=== PATIENT | male | born 1945 | race Caucasian/White ===

== ENCOUNTER 2023-01-06 20:50 | Inpatient (IN) ==
[2023-01-06] MEDS ORDERED: SODIUM CHLORIDE 0.9% 1000ML 1,000 ML IV ONE ×2 (21:01→21:32)
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
[2023-01-06] MEDS ORDERED: PIPERACILLIN/TAZOBACTAM 4.5 GM/120 ML BAG IV ONE (21:32)
[2023-01-06 21:42] LABS: Hemoglobin 12.8 g/dl (14.0-18.0); Mean Corpuscular Hemoglobin 30.1 pg (25.0-34.0); Mean Corpuscular Hgb Conc 34.6 g/dL (32.0-36.0); Mean Corpuscular Volume 87.1 fL (80.0-100.0); Mean Platelet Volume 9.8 fL (9.4-12.4); Platelet Count 147 K/uL (130-400); RDW Coefficient of Variation 12.1 % (11.5-14.5); RDW Standard Deviation 38.7 fL (36.4-46.3); Red Blood Count 4.25 M/uL (4.70-6.10); White Blood Count 17.36 K/ul (4.8-10.8)
[2023-01-06 21:49] LABS: Alanine Aminotransferase 21 U/L (7-52); Albumin Level 3.9 gm/dl (3.4-5.0); Alkaline Phosphatase 51 U/L (34-104); Anion Gap 9 (3-11); Aspartate Aminotransferase 33 U/L (13-39); BUN Creatinine Ratio 18.9 (10-20); Bilirubin Direct 0.4 mg/dl (0-0.2); Bilirubin,Total 1.2 mg/dl (0.2-1.0); Blood Urea Nitrogen 25 mg/dl (6-23); Calcium 8.9 mg/dl (8.6-10.3); Carbon Dioxide 28 mmol/L (21-32); Chloride 102 mmol/L (98-107); Est GFR (African American) 60.7 ml/min; Est GFR (Non-African American) 52.4 ml/min; Glucose 121 mg/dl (70-99(Fasting)); Magnesium 1.3 mg/dl (1.7-2.4); Potassium 3.6 mmol/L (3.5-5.1); Sodium 139 mmol/L (136-145); Total Protein 6.7 gm/dl (6.0-8.3)
[2023-01-06] MEDS ORDERED: ACETAMINOPHEN 1,000 MG/100 ML VIAL IV STA (21:49)
[2023-01-06] MEDS ORDERED: MAGNESIUM SULFATE / D5W 1 GM/100 ML BAG IV STA (21:51)
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
[2023-01-06 22:04] LABS: Troponin I High Sensitivity 1382.5 pg/ml (0-20)
[2023-01-06 22:23] LABS: Basophils # (auto) 0.04 K/uL (0-0.2); Basophils % (auto) 0.2 %; Eosinophils % (auto) 0.6 %; Immature Granulocytes # (auto) 0.17 K/uL (0.01-0.20); Lymphocytes # (auto) 0.47 K/uL (1.2-3.4); Lymphocytes % (auto) 2.7 %; Monocytes # (auto) 0.47 K/uL (0.11-0.59); Monocytes % (auto) 2.7 %; Neutrophils # (auto) 16.11 K/uL (1.40-6.50); Neutrophils % (auto) 92.8 %
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
[2023-01-06] MEDS ORDERED: MIDAZOLAM HCL 1 MG/ML 2ML VIAL ONE (23:23)
[2023-01-06] MEDS ORDERED: KETAMINE 50 MG/5 ML SYRINGE ONE (23:24)
[2023-01-06] MEDS ORDERED: fentaNYL citrate PF 100 MCG/2 ML VIAL IV PRN (23:29)
[2023-01-06] MEDS ORDERED: ONDANSETRON INJ 2 MG/ML 2 ML VIAL IV PRN (23:29)
[2023-01-06] MEDS ORDERED: ATROPINE SULFATE 0.1 MG/ML 10ML SYR IV PRN (23:29)
[2023-01-06] MEDS ORDERED: ePHEDrine sulfate 50 MG/ML AMP IV PRN (23:29)
[2023-01-06 23:35] LABS: Appearance Urine Turbid (Clear); Bacteria Urine Automated 2+ (Negative); Bilirubin Urine Negative (Negative); Blood Urine 3+ (Negative); Color Urine Yellow; Epithelial Cell Urine Auto >30 /lpf (0-5); Glucose Urine UA Negative (Negative); Ketones Urine Negative (Negative); Leukocyte Esterase Urine 3+ (Negative); Nitrite Urine Positive (Negative); Protein Urine 2+ (Negative); RBC Urine Automated >30 /hpf (0-4); Specific Gravity Urine 1.019 (1.000-1.030); Urobilinogen Urine Negative (Negative); WBC Urine Automated >30 /hpf (0-5); pH Urine 5.5 (4.5-7.5)
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
[2023-01-07] MEDS ORDERED: LIDOCAINE 2% 2 ML VIAL/AMP(20MG/ML) INFIL ONE (00:09)
[2023-01-07] MEDS ORDERED: PROPOFOL IV EMULSION 10 MG/ML 20 ML VIAL IV ONE (00:09)
[2023-01-07] MEDS ORDERED: ONDANSETRON INJ 2 MG/ML 2 ML VIAL ONE (00:11)
--- NOTE | 2023-01-07 00:21 | Operative Report ---
PG Post Operative Report Pre & Post Diagnosis Operation Date: 01/06/23 23:00 Pre-Op Diagnosis: Sepsis Post-Op Diagnosis: Sepsis I identified the patient and participated in the time-out.: Yes Procedure Operation Date: 01/06/23 23:00 Actual Procedures Cystoscopy with bilateral retrograde pyelogram, urine aspiration, and stent placement Surgeon Isiah Leon, II, DO Plastic Design Applier None Estimated Blood Loss 1 Findings Consistent with Post-Op Diagnosis Stent placed in good position. Severely obstructed ureter on the left with stone impacted in the distal ureter. Wire was able to be placed and stent placed. Moderate obstruction of the right ureter. Stent placed without major issue. Urine aspirated from each renal pelvis and sent for culture Specimens Urine right kidney Urine left kidney Drains 6 Fr Multilength bilateral Anesthesia Type MAC Complications none Disposition Disposition: Recovery Room Indications Patient with obstruction with signs of sepsis and GASPER. Patient found to bilateral stones.. Risks and benefits discussed at length. Description of Procedure Patient was consented and brought back to the operating room. Patient was placed under anesthesia in the supine position and moved to the dorsal lithotomy position. Patient was prepped and draped in the regular sterile fashion. A time out was completed. A 30degree Cystoscope was placed into the bladder and the entire bladder was examined. The UO's were identified. This starting on the left and then moving to the right. The UO was cannulized with a catheter. The left side had a severe obstruction and required considerable manipulation. A wire was used to bypass the area of obstruction and then the catheter was able to be advanced. Urine was aspirated from the left side and sent for microanalysis. The wire was removed and a retrograde pyelogram was completed. A wire was then replaced placed. With the wire in place, a 6 Fr Double J stent was placed. It was confirmed with fluoroscopy. The right ureter was then cannulated. The catheter was advanced to the renal pelvis and urine was drained. There was obstruction from a stone however it was considerably less obstructed than the left side. Urine was aspirated and sent for culture. A retrograde pyelogram was completed and the wire was replaced. A 6 Sami multilength stent was then placed and confirmed with fluoroscopy. With the stents in place, the bladder was emptied. The scope was removed. The patient was cleaned, aroused from anesthesia, and transferred to the pacu in stable condition having tolerated the procedure well with no complications. I was present and participated in all aspects of the procedure. The patient will be monitored in the PACU until transferred. Patient will be monitored on the floor with supportive care and broad-spectrum antibiotics in order to cover sepsis and likely pyelonephritis and bacteremia. We will wait for cultures to de-escalate. Will likely need approximately 10 to 14 days of antibiotics prior to intervention on the stone I attest to the content of the Intraoperative Record and any orders documented therein. Any exceptions are noted below.
[2023-01-07] MEDS ORDERED: DIATRIZOATE MEGLUMINE 30% 100ML VIAL INSTIL ONE (00:22)
--- NOTE | 2023-01-07 00:28 | Anesthesiology Progress Note ---
Date of Service January 07, 2023 Anesthesia Post Procedure Vital Signs Vital Signs: Temp Pulse Pulse Resp BP BP Pulse Ox 01/06/23 23:21 85 01/06/23 23:21 96/61 L 01/06/23 23:20 83 01/06/23 23:10 81 24 98 01/06/23 23:00 84 19 98 01/06/23 23:00 90/38 L 01/06/23 22:50 80 24 99 01/06/23 22:40 93 H 97 01/06/23 22:30 85 22 98 01/06/23 22:30 115/65 01/06/23 22:20 86 20 98 01/06/23 22:10 90 17 01/06/23 22:00 110/67 01/06/23 23:25 01/06/23 23:22 36.7 C 85 20 96/61 L 96 01/06/23 22:00 84 21 99 01/06/23 21:50 86 21 98 01/06/23 21:40 103 H 20 01/06/23 21:30 93 H 23 98 01/06/23 21:30 98/59 L 01/06/23 21:20 92 H 21 96 01/06/23 21:10 91 H 21 97 01/06/23 21:02 92 H 20 96 01/06/23 21:00 24 01/06/23 21:00 95 01/06/23 21:00 38.1 C H 93 H 16 111/62 98 O2 Del Method O2 Flow Rate 01/06/23 23:21 01/06/23 23:21 01/06/23 23:20 01/06/23 23:10 01/06/23 23:00 01/06/23 23:00 01/06/23 22:50 01/06/23 22:40 01/06/23 22:30 01/06/23 22:30 01/06/23 22:20 01/06/23 22:10 01/06/23 22:00 01/06/23 23:25 Nasal Cannula 4 01/06/23 23:22 Nasal Cannula 4 01/06/23 22:00 01/06/23 21:50 01/06/23 21:40 01/06/23 21:30 01/06/23 21:30 01/06/23 21:20 01/06/23 21:10 01/06/23 21:02 01/06/23 21:00 01/06/23 21:00 Nasal Cannula 4 01/06/23 21:00 Nasal Cannula 4 Pain Intensity Back: Pain Intensity: 7 Transfer of Care Handoff Completed per policy Notes Mental Status: alert / awake / arousable Patient Amnestic to Procedure: Yes Nausea / Vomiting: adequately controlled Pain: adequately controlled Airway Patency, RR, SpO2: stable & adequate BP & HR: stable & adequate Hydration State: stable & adequate Anesthetic Complications: no major complications apparent
[2023-01-07] MEDS ORDERED: ONDANSETRON INJ 2 MG/ML 2 ML VIAL IV PRN (01:51)
[2023-01-07] MEDS ORDERED: NITROGLYCERIN SL 0.4 MG/TAB TAB SL PRN (01:51)
[2023-01-07] MEDS ORDERED: POLYETHYLENE (MIRALAX) 17 GM PACK PO PRN (01:51)
[2023-01-07] MEDS ORDERED: ACETAMINOPHEN 325 MG TAB PO PRN (01:51)
[2023-01-07] MEDS: LACTATED RINGER'S 1,000 ML IV SCH ×3 (02:09→16:11)
[2023-01-07] MEDS: MAGNESIUM SULFATE / D5W 1 GM/100 ML BAG IV SCH ×2 (02:09→03:45)
[2023-01-07] MEDS: PIPERACILLIN/TAZOBACTAM 4.5 GM in DEXTROSE 5% 100 ML IV SCH ×3 (02:30→17:25)
[2023-01-07] MEDS ORDERED: LACTATED RINGER'S 500 ML IV ONE (03:00)
[2023-01-07 03:12] LABS: Albumin Level 3.2 gm/dl (3.4-5.0); Bilirubin,Total 1.3 mg/dl (0.2-1.0); Calcium 7.9 mg/dl (8.6-10.3); Magnesium 1.7 mg/dl (1.7-2.4); Potassium 3.9 mmol/L (3.5-5.1)
[2023-01-07 03:18] LABS: Albumin Globulin Ratio 1.3 (0.9-2); BUN Creatinine Ratio 21.4 (10-20); Creatinine Clr Calc Pharmacy 58.8 ml/min; Est GFR (African American) 74.1 ml/min; Est GFR (Non-African American) 63.9 ml/min; Globulin 2.4 gm/dl (2.5-4.0); Total Protein 5.6 gm/dl (6.0-8.3)
[2023-01-07 06:32] LABS: Hematocrit (blood only) 35.3 % (42.0-52.0); Mean Corpuscular Hemoglobin 30.1 pg (25.0-34.0); Mean Corpuscular Volume 88.5 fL (80.0-100.0); Platelet Count 127 K/uL (130-400); RDW Coefficient of Variation 12.4 % (11.5-14.5); RDW Standard Deviation 40.1 fL (36.4-46.3); Red Blood Count 3.99 M/uL (4.70-6.10); White Blood Count 19.94 K/ul (4.8-10.8)
[2023-01-07 07:13] LABS: Basophils # (auto) 0.07 K/uL (0-0.2); Basophils % (auto) 0.4 %; Dohle Bodies 1+; Echinocytes 1+; Eosinophils # (auto) 0.04 K/uL (0-0.50); Eosinophils % (auto) 0.2 %; Immature Granulocytes # (auto) 0.18 K/uL (0.01-0.20); Immature Granulocytes % (auto) 0.9 %; Lymphocytes # (auto) 0.56 K/uL (1.2-3.4); Lymphocytes % (auto) 2.8 %; Monocytes # (auto) 0.75 K/uL (0.11-0.59); Monocytes % (auto) 3.8 %; Neutrophils # (auto) 18.34 K/uL (1.40-6.50); Neutrophils % (auto) 91.9 %; Toxic Vacuolation 1+
--- NOTE | 2023-01-07 07:30 | XRay Report ---
XR chest 1V portable HISTORY: Sepsis COMPARISON: Chest 01/03/2023. FINDINGS: The cardiac silhouette is mildly enlarged. There is mild central pulmonary vascular congest ion without overt edema. No new focal lung consolidations to suggest a pneumonia. No pleural effusion s. No pneumothorax. IMPRESSION: Cardiomegaly with mild central pulmonary vascular congestion without overt edema. ACT 112: Negative or not required by law. Electronically signed by: Ernie Medellin M.D. 01/07/2023 7:29 AM
--- NOTE | 2023-01-07 07:36 | Fluoroscopy Report ---
FL retrograde includes kub CLINICAL HISTORY: BILAT STENT PLACEMENT COMPARISON STUDY: None. FLUOROSCOPY TIME: 37 seconds FLUOROSCOPY IMAGES: 3 Ka,r: 9.4 mGy FINDINGS: Retrograde opacification of the bilateral renal collecting systems with bilateral ureteral stents. The ureteral stents appear in good position. IMPRESSION: Fluoroscopic assistance as above. ACT 112: Negative or not required by law. Electronically signed by: Ernie Medellin M.D. 01/07/2023 7:35 AM
[2023-01-07] MEDS: ENOXAPARIN INJ 40 MG/0.4 ML SYR SQ SCH (08:31)
[2023-01-07] MEDS: PANTOprazole 40 MG TAB PO SCH (08:31)
[2023-01-07 09:19] LABS: A calco-baum cmplx NotReported Not Detected (NotDetected); Bact fragilis Not Reported Not Detected (NotDetected); C auris Not Reported Not Detected (NotDetected); CTX-M Resistant Gene DETECTED (NotDetected); Calbicans Not Reported Not Detected (NotDetected); Candida glabrata Not Reported Not Detected (NotDetected); Candida krusei Not Reported Not Detected (NotDetected); Cneoformans/gatti Not Reported Not Detected (NotDetected); Cparapsilosis Not Reported Not Detected (NotDetected); Ctropicalis Not Reported Not Detected (NotDetected); E cloacae compx Not Reported Not Detected (NotDetected); Efaecalis Not Reported Not Detected (NotDetected); Efaecium Not Reported Not Detected (NotDetected); Enterobacterales DETECTED (NotDetected); Enterobacterales Not Reported DETECTED (NotDetected); Escherichia coli Not Reported DETECTED (NotDetected); H influenzae Not Reported Not Detected (NotDetected); IMP Resistant Gene Not Detected (NotDetected); K aerogenes Not Reported Not Detected (NotDetected); KPC Resistant Gene Not Detected (NotDetected); Koxytoca Not Reported Not Detected (NotDetected); Kpneumoniae grp Not Reported Not Detected (NotDetected); Lmonocyt Not Reported Not Detected (NotDetected); N meningitidis Not Reported Not Detected (NotDetected); NDM Resistant Gene Not Detected (NotDetected); OXA 48 Like Resistant Gene Not Detected (NotDetected); P aeruginosa Not Reported Not Detected (NotDetected); Proteus spp Not Reported Not Detected (NotDetected); Salmonella spp Not Reported Not Detected (NotDetected); Smarcescens Not Reported Not Detected (NotDetected); Staph lugdunensis Not Reported Not Detected (NotDetected); Staph spp. Not Reported Not Detected (NotDetected); Staphaureus Not Reported Not Detected (NotDetected); Staphepi Not Reported Not Detected (NotDetected); Stenmaltophilia Not Reported Not Detected (NotDetected); Strep agal(GrpB) Not Reported Not Detected (NotDetected); Strep pneum Not Reported Not Detected (NotDetected); Strep pyog (GrpA) Not Reported Not Detected (NotDetected); Strep spp Not Reported Not Detected (NotDetected); VIM Resistant Gene Not Detected (NotDetected); mcr-1 Colistin Resistant Gene Not Detected (NotDetected)
--- NOTE | 2023-01-07 11:19 | Electrocardiogram Report ---
Test Reason : Blood Pressure : / mmHG Vent. Rate : 093 BPM Atrial Rate : 093 BPM P-R Int : 158 ms QRS Dur : 098 ms QT Int : 322 ms P-R-T Axes : 057 -46 -01 degrees QTc Int : 400 ms Normal sinus rhythm with Pac's Left anterior fascicular block Nonspecific T wave abnormality Abnormal ECG When compared with ECG of 03-JAN-2023 12:51, Vent. rate has increased BY 35 BPM QRS axis Shifted left Pac's are present Inverted T waves have replaced nonspecific T wave abnormality in Inferior leads Confirmed by Jeancarlos Blandon ([id number]) on 01/07/2023 11:18:36 AM Referred By: Isiah Leon Confirmed By:Jeancarlos Blandon
--- NOTE | 2023-01-07 12:19 | Hospitalist Progress Note ---
Date of Service January 07, 2023 Assessment & Plan (1) Septicemia: Plan: Patient is a 77-year-old male here with bilateral ureterolithiasis, UTI, and septicemia. Growing gram-negative rods in blood cultures from outside hospital at [place]. With obvious abnormal urinalysis indicative of infection. Here with leukocytosis, fever, tachycardia, elevated lactate, and soft blood pressures. With acute kidney injury and NSTEMI Procalcitonin elevated at 124 Lactate elevated at 2.2 -Admit to PCU for telemetry monitoring -Continue IV Zosyn -Follow urine and blood cultures both from here and will need to contact outside hospital at [place] for follow-up on culture results -Continue IV fluids for volume resuscitation and repeat lactate now -Tylenol as needed for fevers and pain -Follow CBC, CMP, magnesium in the morning -Consulting urology and plans for urgent bilateral ureteral stent placement for source control Blood pressure is in the 80s systolic, required an additional bolus. If Blood pressure remains low, will transfer to ICU. Signed out to overnight residents. (2) Ureterolithiasis: Plan: With bilateral obstructing ureteral stones, acute kidney injury, and septicemia as above Plans for urology intervention with bilateral ureteral stents urgently Will need stone treatment after sepsis resolved Appreciate urology consultation (3) GASPER (acute kidney injury): Plan: Creatinine increased to 1.32 from 0.8 several days ago This is secondary to sepsis and bilateral obstructing ureteral stones Giving IV fluids, ureteral stents to be placed urgently Follow BMP in the morning (4) NSTEMI (non-ST elevated myocardial infarction): Plan: Troponin elevated at 1382 on admission, no chest pain, ECG without ischemic changes He has no history of any cardiac issues that he knows about. He is usually quite active and has never had angina. He walks on a treadmill 10 minutes each day and does other exercises. Likely myocardial demand ischemia in the setting of sepsis -Monitor on telemetry for arrhythmias -Trend serial troponin -Check echocardiogram -Consider cardiology consultation if troponin continues to trend upward -He is allergic to aspirin so we will hold off at this time -No need for heparin drip at this point as this is not acute coronary syndrome unless troponin trends sharply upward (5) Hypomagnesemia: Plan: Magnesium quite low at 1.3 -Replaced with 3 g of IV magnesium sulfate -Follow BMP and magnesium in the morning -Monitor on telemetry for arrhythmias (6) Osteoarthritis: Plan: Not taking anything at this time but has chronic hip, knee, and wrist joint pains from previous accident with multiple orthopedic surgeries (7) GERD (gastroesophageal reflux disease): Plan: Continue PPI (8) HLD (hyperlipidemia): Plan: Continue statin (9) Pulmonary nodule: Plan: CT scan of abdomen/pelvis performed as an outpatient and scanned into the chart does note a 5 mm right middle lobe nodule He is not a smoker Needs outpatient follow-up chest CT in 6 months-can be ordered by PCP Plan DVT prophylaxis-start Lovenox tomorrow morning after procedure, SCDs Disposition-admit to PCU Full code and his would be his spokesperson if he is unable to speak for himself. Admission and Anticipated Discharge Date Admission Date: January 06, 2023 Subjective Patient reports feeling better today. Not at baseline, but much less generalized malaise. Review of Systems Review of Systems: All systems reviewed & are unremarkable except as noted in HPI & below Physical Exam Constitutional: WD/WN, vitals as above Eyes: PERRL, conjunctivae normal, anicteric sclerae Neck: trachea midline, no thyromegaly Respiratory: normal respiratory effort, lungs clear to auscultation Cardiovascular: RRR, no murmur, no edema Chest (Breasts): Chest: normal inspection of chest Gastrointestinal (Abdomen): normal bowel sounds, soft, nontender, no hepatosplenomegaly Musculoskeletal: Extremities: extremities normal to inspection; no cyanosis and no clubbing Skin: no rashes, warm and dry Neurologic: moves all extremities and awake; no focal motor deficits Psychiatric: A+Ox3, euthymic affect Lymphatic: no lymphedema Results & Data Results & Data Vital Signs (Past 12 Hours) Vital Signs Temp Pulse Pulse Pulse Resp BP Pulse Ox 01/07/23 11:13 36.6 C 78 18 91/50 L 91 01/07/23 07:15 69 01/07/23 07:29 36.5 C 72 16 116/70 93 01/07/23 04:16 65 102/63 99 01/07/23 03:42 37.2 C 66 22 93/60 L 98 01/07/23 02:48 71 92/55 L 01/07/23 02:21 36.8 C 86 18 93/52 L 94 01/07/23 01:47 74 01/07/23 00:50 80 20 103/56 L 97 01/07/23 00:40 36.7 C 83 18 100/53 L 96 01/07/23 00:30 36.7 C 87 18 100/61 96 01/07/23 00:20 37.2 C 86 18 100/57 L 96 O2 Del Method O2 Flow Rate 01/07/23 11:13 Room Air 01/07/23 07:15 01/07/23 07:29 Room Air 01/07/23 04:16 Nasal Cannula 2 01/07/23 03:42 Nasal Cannula 2 01/07/23 02:48 Nasal Cannula 2 01/07/23 02:21 Room Air 01/07/23 01:47 01/07/23 00:50 Oxymask 8 01/07/23 00:40 Oxymask 8 01/07/23 00:30 Oxymask 8 01/07/23 00:20 Oxymask 8 PG Care Time/CCT Total # of Minutes Spent Total Time Spent with Patient: Total time spent is greater than 50% in coordination of care (as documented) at patient's floor/unit and/or counseling patient: Coding Level of Care Code 42991 SUB INP/OBS CARE 235MIN Diagnoses Septicemia A41.9 Ureterolithiasis N20.1 GASPER (acute kidney injury) N17.9 NSTEMI (non-ST elevated myocardial infarction) I21.4 Hypomagnesemia E83.42 Osteoarthritis M19.90 GERD (gastroesophageal reflux disease) K21.9 HLD (hyperlipidemia) E78.5 Pulmonary nodule R91.1
--- NOTE | 2023-01-07 14:02 | Electrocardiogram Report ---
Test Reason : Blood Pressure : / mmHG Vent. Rate : 069 BPM Atrial Rate : 069 BPM P-R Int : 166 ms QRS Dur : 100 ms QT Int : 378 ms P-R-T Axes : 061 -26 004 degrees QTc Int : 405 ms Normal sinus rhythm Low voltage QRS Nonspecific T wave abnormality When compared with ECG of 03-JAN-2023 12:51, Inverted T waves have replaced nonspecific T wave abnormality in Inferior leads Confirmed by Jeancarlos Blandon ([id number]) on 01/07/2023 2:02:02 PM Referred By: Isiah Leon Confirmed By:Jeancarlos Blandon
[2023-01-07] MEDS ORDERED: LACTATED RINGER'S 1,000 ML IV ONE (16:39)
--- NOTE | 2023-01-07 17:07 | Urology Progress Note ---
Date of Service January 07, 2023 Assessment & Plan (1) Septicemia: (2) Ureterolithiasis: (3) Osteoarthritis: (4) HLD (hyperlipidemia): (5) GERD (gastroesophageal reflux disease): (6) Bladder outlet obstruction: (7) Prostate CA: (8) Sepsis: (9) Acute bilateral obstructive uropathy: (10) Bilateral kidney stones: Plan POD1 s/p bilateral stent placement. Known partially obstructing stone with plan for intervention tomorrow, however developed severe pain and delirium and found to have new passing stone on contraslateral side causing severe hydronephrosis. Patient admitted for sepsis with septicemia and bilateral obstructing stones. Patient has known history of obstructing stone had plans to undergo intervention however developed sudden onset of severe pain at [facility] facility was evaluated and found to be in sepsis with the contralateral side also passing a stone causing obstruction. The left has severe hydro with significant obstructing stone. Obstructing stone on the right side with more mild hydro. Patient has history of prostate cancer. Is well-known to the urologic service. Has been on active surveillance. Concern for development of pyelonephritis developing into septicemia with signs of sepsis and systemic inflammatory response syndrome. Had initially presented with some confusion. Patient understood risk and benefits. Was able to answer all questions appropriately. Will likely need a proximately 10 to 14 days weeks of antibiotics depending on culture as well as severity of patient's infection. We will likely need to move forward with stone treatment at that time after adequate time for antibiotic management. At this point most concerning and pressing issue is the bilateral obstructions with significant development of sepsis. Patient is on broad-spectrum antibiotics. Was transitioned from Rocephin at the [facility] facility to Zosyn at our facility for increased gram- negative coverage including coverage of Pseudomonas. We will await the full culture results. Blood cultures positive. Maintain stent. Plan for continued supportive care. Improved overnight though some occasional borderline hypotension episodes. No significant tachycardia. Trending labs over time. If develops fevers may need catheter for full dr faye. Continue with broad spectrum abx. Will de-esculate when appropriate with plans for full abx course and clearing of infection over time with intervention on stones once improved. Monitor and plan outpatient followup to set up intervention and reassess. Admission and Anticipated Discharge Date Admission Date: January 06, 2023 Subjective Postop from stent placement for obstruction issues. Patient has been tolerating well. Has noticed some frequency and urgency. Has not had severe pain in the back and flank. Does have occasional burning and irritation. No severe episodes or major changes. No new nausea or vomiting. Had tolerated anesthesia without major problems Review of Systems Review of Systems: All systems reviewed & are unremarkable except as noted in HPI & below Physical Exam Physical Exam: General: Alert in no acute distress. HEENT: Normocephalic Atraumatic. Inspection normal. Cranial Nerves 2-12 Grossly intact. Normal inspection of face. Normal inspection of neck. Psychologic: Normal affect. Respiratory: Nonlabored. No use of accessory muscles. No tachypnea or dyspnea. Cardiovascular: No tachycardia Skin: [place] and Dry. No rashes or visible lesions. Extremities/Lymphatics: No edema Abdomen: Soft Non-distended. No rebound or guarding. Results & Data Vital Signs (Past 12 Hours) Vital Signs Temp Pulse Pulse Resp BP Pulse Ox O2 Del Method 01/07/23 16:52 36.6 C 01/07/23 16:16 96 Nasal Cannula 01/07/23 16:15 38.2 C H 78 18 86/46 L 83 L Room Air 01/07/23 15:26 81 01/07/23 11:13 36.6 C 78 18 91/50 L 91 Room Air 01/07/23 07:15 69 01/07/23 07:29 36.5 C 72 16 116/70 93 Room Air O2 Flow Rate 01/07/23 16:52 01/07/23 16:16 3 01/07/23 16:15 01/07/23 15:26 01/07/23 11:13 01/07/23 07:15 01/07/23 07:29 PG Care Time/CCT Total # of Minutes Spent Total Time Spent with Patient: Total time spent is greater than 50% in coordination of care (as documented) at patient's floor/unit and/or counseling patient: Coding Level of Care Code 89523 SUB INP/OBS CARE 3/50MIN Diagnoses Septicemia A41.9 Ureterolithiasis N20.1 Osteoarthritis M19.90 HLD (hyperlipidemia) E78.5 GERD (gastroesophageal reflux disease) K21.9 Bladder outlet obstruction N32.0 Prostate CA C61 Sepsis A41.9 Acute bilateral obstructive uropathy N13.9 Bilateral kidney stones N20.0
[2023-01-07] MEDS: ROSUVASTATIN CALCIUM 10 MG TAB PO SCH (19:50)
[2023-01-08] MEDS: PIPERACILLIN/TAZOBACTAM 4.5 GM in DEXTROSE 5% 100 ML IV SCH ×3 (02:28→17:56)
[2023-01-08] MEDS: LACTATED RINGER'S 1,000 ML IV SCH ×3 (02:30→17:57)
[2023-01-08] MEDS: ENOXAPARIN INJ 40 MG/0.4 ML SYR SQ SCH (08:06)
[2023-01-08] MEDS: PANTOprazole 40 MG TAB PO SCH (08:06)
[2023-01-08 08:45] LABS: Hematocrit (blood only) 32.9 % (42.0-52.0); Hemoglobin 11.1 g/dl (14.0-18.0); Mean Corpuscular Hemoglobin 29.5 pg (25.0-34.0); Mean Corpuscular Hgb Conc 33.7 g/dL (32.0-36.0); Mean Corpuscular Volume 87.5 fL (80.0-100.0); Mean Platelet Volume 10.4 fL (9.4-12.4); Platelet Count 144 K/uL (130-400); RDW Coefficient of Variation 12.4 % (11.5-14.5); RDW Standard Deviation 39.8 fL (36.4-46.3); Red Blood Count 3.76 M/uL (4.70-6.10); White Blood Count 17.29 K/ul (4.8-10.8)
[2023-01-08 08:56] LABS: BUN Creatinine Ratio 21.8 (10-20); C Reactive Protein 26.44 mg/dl (0-0.5); Calcium 8.4 mg/dl (8.6-10.3); Creatinine Clr Calc Pharmacy 46.4 ml/min; Est GFR (African American) 55.6 ml/min; Potassium 4.1 mmol/L (3.5-5.1)
--- NOTE | 2023-01-08 12:47 | Ultrasound Report ---
ULTRASOUND KIDNEYS AND BLADDER CLINICAL HISTORY: Elevated creatinine. Urosepsis. COMPARISON STUDY: No priors. TECHNIQUE: Real-time, grayscale, and color flow sonography of the kidneys and bladder is performed. I mages are reviewed in the transverse and longitudinal planes. FINDINGS: Kidneys: The kidneys are normal in size and echotexture. Bilateral ureteral stents are in place. The right kidney measures 12.5 cm in length and the left kidney measures 13.7 cm in length. There is mil d left-sided hydronephrosis. No hydronephrosis is seen on the right. No shadowing renal calculi are i dentified. A subcentimeter cyst is noted on the left. There is no sonographic evidence of contour def orming renal mass lesion. No perinephric fluid is identified. Bladder: The prostate gland is enlarged and heterogeneous noticing median lobe hypertrophy. The bladd er is decompressed, and the wall appears thickened/ventilated indicating chronic outlet obstruction. The bladder contains the distal ends of bilateral ureteral stents. IMPRESSION: 1. Bilateral ureteral stents are in place. 2. Mild left-sided hydronephrosis. 3. Prostatomegaly with evidence of chronic bladder outlet obstruction. ACT 112: Negative or not required by law. Electronically signed by: Stuart Awad M.D. 01/08/2023 12:46 PM
[2023-01-08] MEDS: ROSUVASTATIN CALCIUM 10 MG TAB PO SCH (20:50)
--- NOTE | 2023-01-08 23:08 | Hospitalist Progress Note ---
Date of Service January 08, 2023 Assessment & Plan (1) Septicemia: Plan: Patient is a 77-year-old male here with bilateral ureterolithiasis, UTI, and septicemia. Growing gram-negative rods in blood cultures from outside hospital at [place]. With obvious abnormal urinalysis indicative of infection. Here with leukocytosis, fever, tachycardia, elevated lactate, and soft blood pressures. With acute kidney injury and NSTEMI Procalcitonin elevated at 124 Lactate elevated at 2.2 -Admit to PCU for telemetry monitoring -Continue IV Zosyn -Follow urine and blood cultures both from here and will need to contact outside hospital at [place] for follow-up on culture results -Continue IV fluids for volume resuscitation and repeat lactate now -Tylenol as needed for fevers and pain -Follow CBC, CMP, magnesium in the morning -Consulting urology and plans for urgent bilateral ureteral stent placement for source control Blood pressure has improved. WBC showing improvement, and lcinically patient feels better on 01/08 Awaiting cultures, Patient has a mutation with CTX- resistance which makes maksim low risk that zosyn could lead to failure of treatment. However, given significatn clinical imprvement, zosyn appears to be working. WIll await sensitivites before switching to another agent, though will strongly consider a carbapenem.. (2) Ureterolithiasis: Plan: With bilateral obstructing ureteral stones, acute kidney injury, and septicemia as above Plans for urology intervention with bilateral ureteral stents urgently Will need stone treatment after sepsis resolved Appreciate urology consultation (3) GASPER (acute kidney injury): Plan: Creatinine increased to 1.32 from 0.8 several days ago This is secondary to sepsis and bilateral obstructing ureteral stones Giving IV fluids, ureteral stents to be placed urgently Follow BMP in the morning (4) NSTEMI (non-ST elevated myocardial infarction): Plan: Troponin elevated at 1382 on admission, no chest pain, ECG without ischemic changes He has no history of any cardiac issues that he knows about. He is usually tre[place] te active and has never had angina. He walks on a treadmill 10 minutes each day and does other exercises. Likely myocardial demand ischemia in the setting of sepsis -Monitor on telemetry for arrhythmias -Trend serial troponin -Check echocardiogram -Consider cardiology consultation if troponin continues to trend upward -He is allergic to aspirin so we will hold off at this time -No need for heparin drip at this point as this is not acute coronary syndrome unless troponin trends sharply upward (5) Hypomagnesemia: Plan: Magnesium quite low at 1.3 -Replaced with 3 g of IV magnesium sulfate -Follow BMP and magnesium in the morning -Monitor on telemetry for arrhythmias (6) Osteoarthritis: Plan: Not taking anything at this time but has chronic hip, knee, and wrist joint pains from previous accident with multiple orthopedic surgeries (7) GERD (gastroesophageal reflux disease): Plan: Continue PPI (8) HLD (hyperlipidemia): Plan: Continue statin (9) Pulmonary nodule: Plan: CT scan of abdomen/pelvis performed as an outpatient and scanned into the chart does note a 5 mm right middle lobe nodule He is not a smoker Needs outpatient follow-up chest CT in 6 months-can be ordered by PCP Plan DVT prophylaxis-start Lovenox tomorrow morning after procedure, SCDs Disposition-admit to PCU Full code and his would be his spokesperson if he is unable to speak for himself. Admission and Anticipated Discharge Date Admission Date: January 06, 2023 Subjective Patient reports feeling better. Patient has no new complaints. Review of Systems Review of Systems: All systems reviewed & are unremarkable except as noted in HPI & below Physical Exam Constitutional: WD/WN, vitals as above Eyes: PERRL, conjunctivae normal, anicteric sclerae Neck: trachea midline, no thyromegaly Respiratory: normal respiratory effort, lungs clear to auscultation Cardiovascular: RRR, no murmur, no edema Chest (Breasts): Chest: normal inspection of chest Gastrointestinal (Abdomen): normal bowel sounds, soft, nontender, no hepatosplenomegaly Musculoskeletal: Extremities: extremities normal to inspection; no cyanosis and no clubbing Skin: no rashes, warm and dry Neurologic: moves all extremities and awake; no focal motor deficits Psychiatric: A+Ox3, euthymic affect Lymphatic: no lymphedema Results & Data Results & Data Vital Signs (Past 12 Hours) Vital Signs Temp Pulse Pulse Resp BP Pulse Ox O2 Del Method 01/08/23 19:50 36.9 C 78 20 145/74 H 93 Room Air 01/08/23 15:45 37.1 C 72 18 144/84 H 93 Room Air 01/08/23 15:11 80 01/08/23 11:58 36.6 C 79 18 146/83 H 95 Room Air PG Care Time/CCT Total # of Minutes Spent Total Time Spent with Patient: Total time spent is greater than 50% in coordination of care (as documented) at patient's floor/unit and/or counseling patient: Coding Level of Care Code 83149 SUB INP/OBS CARE 3/50MIN Diagnoses Septicemia A41.9 Ureterolithiasis N20.1 GASPER (acute kidney injury) N17.9 NSTEMI (non-ST elevated myocardial infarction) I21.4 Hypomagnesemia E83.42 Osteoarthritis M19.90 GERD (gastroesophageal reflux disease) K21.9 HLD (hyperlipidemia) E78.5 Pulmonary nodule R91.1 Time Spent (min) 55
[2023-01-09] MEDS: LACTATED RINGER'S 1,000 ML IV SCH (02:14)
[2023-01-09] MEDS: PIPERACILLIN/TAZOBACTAM 4.5 GM in DEXTROSE 5% 100 ML IV SCH (02:14)
[2023-01-09 07:28] LABS: Hemoglobin 10.1 g/dl (14.0-18.0); Mean Corpuscular Hemoglobin 29.5 pg (25.0-34.0); Mean Corpuscular Hgb Conc 33.7 g/dL (32.0-36.0); Mean Corpuscular Volume 87.7 fL (80.0-100.0); Mean Platelet Volume 10.2 fL (9.4-12.4); Platelet Count 132 K/uL (130-400); RDW Standard Deviation 38.6 fL (36.4-46.3); Red Blood Count 3.42 M/uL (4.70-6.10); White Blood Count 12.43 K/ul (4.8-10.8)
[2023-01-09 07:46] LABS: BUN Creatinine Ratio 19.1 (10-20); C Reactive Protein 15.24 mg/dl (0-0.5); Calcium 8.1 mg/dl (8.6-10.3); Creatinine Clr Calc Pharmacy 59.9 ml/min; Est GFR (African American) 75.7 ml/min; Est GFR (Non-African American) 65.3 ml/min; Potassium 3.4 mmol/L (3.5-5.1)
[2023-01-09] MEDS: PANTOprazole 40 MG TAB PO SCH (08:40)
[2023-01-09] MEDS: ENOXAPARIN INJ 40 MG/0.4 ML SYR SQ SCH (08:40)
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
[2023-01-09] MEDS ORDERED: ERTAPENEM SODIUM 1,000 MG in SYRINGE 0 ML IV SCH (11:00)
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
--- NOTE | 2023-01-10 05:48 | Electrocardiogram Report ---
Test Reason : Blood Pressure : / mmHG Vent. Rate : 076 BPM Atrial Rate : 076 BPM P-R Int : 154 ms QRS Dur : 102 ms QT Int : 370 ms P-R-T Axes : 053 -12 006 degrees QTc Int : 416 ms Normal sinus rhythm Premature atrial complexes When compared with ECG of 07-JAN-2023 06:06, Premature atrial complexes are now Present Confirmed by Christopher Allen ([id number]) on 01/10/2023 5:48:10 AM Referred By: Isiah Leon Confirmed By:Christopher Allen
== END 2023-01-09 16:45 | disposition home health service (06) | DRG 854 ==
LOC: ED 20:50 → SUATTDRO 22:44 → 2S 22:44
DX: E83.42 Hypomagnesemia; Z88.6 Allergy status to analgesic agent; B96.29 Other Escherichia coli [E. coli] as the cause of diseases classified elsewhere; N17.9 Acute kidney failure, unspecified; R91.1 Solitary pulmonary nodule; Z79.82 Long term (current) use of aspirin; M12.569 Traumatic arthropathy, unspecified knee; A41.51 Sepsis due to Escherichia coli [E. coli]; N13.6 Pyonephrosis; M12.559 Traumatic arthropathy, unspecified hip; M12.539 Traumatic arthropathy, unspecified wrist; K21.9 Gastro-esophageal reflux disease without esophagitis; I24.8 Other forms of acute ischemic heart disease; Z85.46 Personal history of malignant neoplasm of prostate; E78.5 Hyperlipidemia, unspecified

== ENCOUNTER 2023-05-30 07:19 | Observation (INO) ==
--- NOTE | 2023-03-26 14:02 | PAT Medication Instructions ---
Medication Instructions Date of Service March 26, 2023 Home Medications Medication Instructions Recorded tadalafil 5 mg tablet 20 mg PO ONCE PRN sexual activity 02/27/23 #30 tabs chlorpheniramine maleate 4 mg tablet (Allergy (chlorpheniramine)) 4 mg PO Q5H PRN Allergy Symptoms omeprazole 20 mg tablet,delayed release 20 mg PO PM rosuvastatin 10 mg tablet 10 mg PO QPM ascorbic acid (vitamin C) 500 mg tablet (Vitamin C) 500 mg PO QAM omega-3 fatty acids 1,000 mg capsule 1,000 mg PO QAM vitamin E 268 mg (400 unit) capsule 400 mg PO QAM aspirin 81 mg tablet,delayed release 81 mg PO QAM tadalafil 5 mg tablet 20 mg PO ONCE PRN sexual activity STOP taking 2 weeks before surgery omega-3 fatty acids 1,000 mg capsule 1,000 mg PO QAM vitamin E 268 mg (400 unit) capsule 400 mg PO QAM STOP taking 24 hours before surgery tadalafil 5 mg tablet 20 mg PO ONCE PRN sexual activity DO NOT take the morning of surgery chlorpheniramine maleate 4 mg tablet (Allergy (chlorpheniramine)) 4 mg PO Q5H PRN Allergy Symptoms ascorbic acid (vitamin C) 500 mg tablet (Vitamin C) 500 mg PO QAM Take morning of surgery With a small sip of water, OTHERWISE NOTHING TO EAT OR DRINK AFTER MIDNIGHT: aspirin 81 mg tablet,delayed release 81 mg PO QAM (unless surgeon directed otherwise) Take evening before surgery chlorpheniramine maleate 4 mg tablet (Allergy (chlorpheniramine)) 4 mg PO Q5H PRN Allergy Symptoms (if needed) omeprazole 20 mg tablet,delayed release 20 mg PO PM rosuvastatin 10 mg tablet 10 mg PO QPM Other Notes If you have any questions please call us at [phone] or [phone] or [phone] or [phone]
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
[~2023-05-30 07:19] MED LIST: ACETAMINOPHEN 500 MG TAB PO SCH; CeleBREX 200 MG CAP PO SCH; FAMOTIDINE 20 MG TAB PO SCH; GABAPENTIN 300 MG CAP PO SCH; General Order Problem(s) SCH; LR 500ML BOLUS, THEN 15ML/HR IV SCH; LR 60ML/HR IV SCH; METOCLOPRAMIDE HCL 10 MG TABLET PO SCH; ROPIVACAINE 0.5% 5 MG/ML 30 ML VIAL ONE; ROPIVACAINE 0.5% HCL/PF 150 MG, BUPIVACAINE 0.75% MPF 20 ML, EPINEPHrine 30MG/30ML (OR ... INSTIL SCH; TRANEXAMIC ACID 1,000 MG **IV Intra-op IV SCH; TRANEXAMIC ACID 1,000 MG **IV Pre-op IV SCH; ceFAZolin 2000MG 2,000 MG/15 ML SYR IV SCH; dexAMETHasone 4 MG TAB PO SCH; oxyCODONE HCL 10 MG TABCR (OxyCONTIN) PO SCH
--- NOTE | 2023-05-30 08:37 | History & Physical Bridge Note ---
Date of Service May 30, 2023 History & Physical Bridge Note I have examined the patient, reviewed the History & Physical and in the interval since the performance of the History & Physical I have noted the following changes of clinical significance: no changes noted
[2023-05-30] MEDS ORDERED: MIDAZOLAM HCL 1 MG/ML 2ML VIAL ONE (08:46)
[2023-05-30] MEDS ORDERED: ONDANSETRON INJ 2 MG/ML 2 ML VIAL IV PRN ×2 (08:58→13:30)
[2023-05-30] MEDS ORDERED: ePHEDrine sulfate 50 MG/ML AMP IV PRN (08:58)
[2023-05-30] MEDS ORDERED: ATROPINE SULFATE 0.1 MG/ML 10ML SYR IV PRN (08:58)
[2023-05-30] MEDS ORDERED: fentaNYL citrate PF 100 MCG/2 ML VIAL IV PRN (08:58)
[2023-05-30] MEDS ORDERED: HYDROmorphone INJ 2 MG/ML SYR/VIAL IV PRN (08:58)
[2023-05-30] MEDS ORDERED: ORTHO JOINT ANESTHETIC ONE (09:19)
--- NOTE | 2023-05-30 11:10 | Operative Report ---
Post Operative Report Pre & Post Diagnosis Operation Date: 05/30/23 09:00 Pre-Op Diagnosis: Right Knee Osteoarthritis Post-Op Diagnosis: Right Knee Osteoarthritis I identified the patient and participated in the time-out.: Yes Procedure Operation Date: 05/30/23 09:00 Actual Procedures p Right Total Knee Arthroplasty(Right)Utilizing [employer] journey 2 patient manage total knee arthroplasty size femur 6 tibia 5 polyeleven patella 29 oval - Aftab Gotti DO Surgeon Aftab Gotti DO Body Line Finisher Kirill ALVARADO Estimated Blood Loss 5 Findings Consistent with Post-Op Diagnosis Patient presents with severe end-stage tricompartmental degenerative joint disease involving the right knee nonresponse to conservative management and the patient eburnated bone [id number] with marginal osteophytes 10 degree flexion contracture varus alignment moderate to large effusion Specimens Bone and cartilage Drains Medium bore Hemovac Anesthesia Type MAC Spinal Regional Complications none Disposition Accompanied Patient To Recovery: No Disposition: Recovery Room Indications Patient presents with ongoing complaints of pain to the right knee nonresponse to conservative management occluding physical therapy anti-inflammatories relative rest activity modification corticosteroid injection viscosupplementation above intraoperative findings were noted Description of Procedure After proper prepping and draping of the Right lower extremity anterior midline incision was made over the region of the extensor extensor mechanism after meticulous hemostasis was obtained and maintained in subcutaneous tissues a medial parapatellar incision was made The patella was subluxed lateralward the medial lateral gutter were cleaned from any hypertrophic synovitis and scar tissue of the distal femoral block was placed and the distal femoral osteotomy cut was made subsequently the chamfers anterior and posterior osteotomy cuts were made utilizing the 4-in-1 block the tibia was subsequently subluxed anteriorward medial and ateral meniscal remnants were excised in their entirety remnants of the anterior and posterior cruciate ligaments were excised in their entirety excellent exposure of the proximal tibia was obtained the tibial osteotomy guide was placed on the proximal tibial osteotomy cut was made once again the knee was irrigated with copious amounts of sterile saline solution the patella was subsequently everted lateralward thickened scar tissue around the patella was removed the patella was subsequently cut utilizing a freehand technique and was drilled prepared for final preparation and placement of patella socially flexion-extension gaps were checked and the equal and symmetric trials were placed to the appropriate femoral and tibial trials with poly-spacer being placed for equal flexion and extension gaps and full range of motion including extension to 0 and flexion to 140 the trial components after having been taken to recovery range of motion was subsequently removed meticulous hemostasis was obtained and maintained subsequently a knee block injection of joint cocktail including ropivacaine 0.5% 150 mg. Bupivacaine 0.5% epinephrine 1-200,030 mL's toradol 30 mg dexamethasone 4 mg ketamine 10 mg clonidine 100 micrograms normal saline solution 30 mg was infiltrated into the soft tissues of the posterior knee medial lateral gutters and periosteal synovium special attention was paid to protect neurovascular structures at all times subsequently trial components having been removed the knee was irrigated with sterile saline solution. debris was removed the proximal tibia was subsequently prepared and was made ready for the placement of the tibial component tibial component was also cemented and tamped into position the femoral component was subsequently placed and cemented in the position the patellar component was subsequently cemented in position because hemostasis once again obtained and maintained wound having been thoroughly irrigated with debridement and debridement lavage was performed as well as a medial parapatellar incision closed with #1 Vicryl in interrupted fashion subcutaneous was closed with #2 Vicryl skin was closed with skin clips. PA-C was necessary for prepping and drapping as well as wound closure of deep fascia Sub cutaneous tissue and skin and was necessary for the case. A sterile compressive dressing was placed patient was taken to recovery in stable condition of report dictated by Shen I attest to the content of the Intraoperative Record and any orders documented therein. Any exceptions are noted below.Due to the complex nature of the procedure, the entire surgery was performed with the operational assistance ofKirill ALVARADO. The information assistant, under direct supervision, was involved in the actual performance of all aspects of the surgical procedure including hemostasis, tissue retraction and incision, instrument management, patient positioning, and wound closure. I attest to the content of the Intraoperative Record and any orders documented therein. Any exceptions are noted below.
[2023-05-30] MEDS ORDERED: PROPOFOL IV EMULSION 10 MG/ML 20 ML VIAL IV ONE (11:39)
[2023-05-30] MEDS ORDERED: LIDOCAINE 2% 2 ML VIAL/AMP(20MG/ML) INFIL ONE (11:39)
--- NOTE | 2023-05-30 12:43 | XRay Report ---
XR knee RT 1 or 2V routine CLINICAL HISTORY: Postoperative evaluation. COMPARISON: None FINDINGS: Alignment of the total right knee arthroplasty is anatomic. There is no periprosthetic fra cture or unexpected radiopaque foreign body. Surgical drain is in place. IMPRESSION: Expected findings following total right knee arthroplasty. ACT 112: Negative or not required by law. Electronically signed by: Joshua White M.D. 05/30/2023 12:41 PM
--- NOTE | 2023-05-30 12:44 | Anesthesiology Progress Note ---
Date of Service May 30, 2023 Anesthesia Post Procedure Vital Signs Vital Signs: Temp Pulse Pulse Resp BP Pulse Ox O2 Del Method 05/30/23 12:25 36.6 C 58 L 15 106/56 L 94 Nasal Cannula 05/30/23 12:15 68 16 110/69 98 Nasal Cannula 05/30/23 12:05 72 14 127/73 98 Nasal Cannula 05/30/23 11:55 83 15 149/88 H 95 Nasal Cannula 05/30/23 11:49 36.7 C 91 H 16 126/91 96 Nasal Cannula 05/30/23 08:10 36.9 C 61 17 148/87 H 97 Room Air O2 Flow Rate 05/30/23 12:25 2 05/30/23 12:15 2 05/30/23 12:05 2 05/30/23 11:55 2 05/30/23 11:49 2 05/30/23 08:10 Transfer of Care Handoff Completed per policy Notes Mental Status: alert / awake / arousable and participated in evaluation Patient Amnestic to Procedure: Yes Nausea / Vomiting: adequately controlled Pain: adequately controlled Airway Patency, RR, SpO2: stable & adequate BP & HR: stable & adequate Hydration State: stable & adequate Anesthetic Complications: no major complications apparent and Pt Satisfied with anesthetic care
[2023-05-30] MEDS ORDERED: HYDROmorphone INJ 0.5 MG/0.5 ML SYR IV PRN (13:30)
[2023-05-30] MEDS ORDERED: oxyCODONE HCL IR 5 MG TAB (IMMEDIATE RELEASE) PO PRN (13:30)
[2023-05-30] MEDS ORDERED: NALOXONE HCL 0.4 MG/1 ML VIAL/CARP IV PRN (13:30)
[2023-05-30] MEDS ORDERED: bisacodyL 10 MG SUPP PR PRN (13:30)
[2023-05-30] MEDS ORDERED: diphenhydrAMINE 50 MG/ML VIAL IV PRN (13:30)
[2023-05-30] MEDS ORDERED: MAGNESIUM HYDROXIDE SUSP 30 ML UDC PO PRN (13:30)
[2023-05-30] MEDS: SODIUM CHLORIDE 0.9% 1,000 ML IV SCH ×2 (14:10→21:29)
[2023-05-30] MEDS: ACETAMINOPHEN 500 MG TAB PO SCH ×2 (15:30→21:29)
[2023-05-30] MEDS: ceFAZolin 2000MG 2,000 MG/15 ML SYR IV SCH (17:52)
[2023-05-30] MEDS: DOCUSATE SODIUM 100 MG CAP PO SCH (20:27)
[2023-05-30] MEDS: ASPIRIN 81 MG ECTAB PO SCH (20:27)
[2023-05-30] MEDS ORDERED: SENNA 8.6 MG TAB PO SCH (21:00)
[2023-05-30] MEDS ORDERED: ROSUVASTATIN CALCIUM 10 MG TAB PO SCH (21:00)
[2023-05-31] MEDS: ceFAZolin 2000MG 2,000 MG/15 ML SYR IV SCH (01:36)
[2023-05-31] MEDS: ACETAMINOPHEN 500 MG TAB PO SCH (05:05)
--- NOTE | 2023-05-31 07:18 | Orthopedic Progress Note ---
Date of Service May 31, 2023 Assessment & Plan (1) History of total right knee replacement: Plan: POD #1 s/p Right TKA pt/ot dvt proph with YADI/SCD/ASA plan for d/c home with HHPT Admission and Anticipated Discharge Date Admission Date: May 30, 2023 Subjective POD #1 s/p Right TKA Review of Systems Constitutional: no fever, no chills and no sweats Respiratory: no cough and no dyspnea Cardiovascular: no chest pain and no dyspnea Gastrointestinal: no abdominal pain, no nausea and no vomiting Physical Exam Physical Exam: Vital Signs Temp 36.6 C 05/31/23 03:53 Pulse 55 L 05/31/23 03:53 Resp 18 05/31/23 03:53 BP 131/69 05/31/23 03:53 Pulse Ox 95 05/31/23 03:53 O2 Del Method Room Air 05/31/23 03:53 O2 Flow Rate 2 05/30/23 13:55 Intake & Output 05/30/23 05/31/23 05/31/23 18:59 06:59 18:59 Intake Total 1200 / 3465.000 2265.000 / 3465.00 0 Output Total 330 / 580 250 / 580 Balance 870 / 2885.000 2015.000 / 2885.00 0 Weight 77.9 kg 77.6 kg Intake: IV 200 / 3159.314 8127.000 / 1765.00 0 Lactated Ringe r's 1,000 ml @ 15 0 / 0 mls/hr IV .Q24 H LOKI Rx#: [id number] Sodium Chlorid e 0.9% 1,000 ml @ 1565.000 / 1565.00 0 100 mls/hr IV .Q10H LOKI Rx#: [id number] Tranexamic Aci d / 0.7% NaCl 1, 200 / 200 000 mg In 100 ml @ 600 mls/hr IV TODAY@0600 LOKI Rx#:[id number] IV Perioperative 1000 / 1000 Oral 700 / 700 Output: Estimated Blood Loss 5 / 5 Drain Output 325 / 575 250 / 575 Knee Hemovac 325 / 575 250 / 575 Other: # Unmeasured Voi ds 1 Weight Measureme nt Method Standing Scale Built in [facility] Musculoskeletal: Right Leg: NVDI, calf SNT, negative nieves sign. DP palpable, able to wiggle toes/ankle movement without difficulty. dressing clean dry and intact. Results & Data Vital Signs (Past 12 Hours) Vital Signs Temp Pulse Resp BP Pulse Ox O2 Del Method 05/31/23 03:53 36.6 C 55 L 18 131/69 95 Room Air 05/30/23 23:43 36.6 C 57 L 18 117/53 L 93 Room Air 05/30/23 19:41 36.5 C 65 18 122/73 95 Room Air Laboratory Results Impressions Knee X-Ray 05/30/23 11:57 XR knee RT 1 or 2V routine CLINICAL HISTORY: Postoperative evaluation. COMPARISON: None FINDINGS: Alignment of the total right knee arthroplasty is anatomic. There is no periprosthetic fracture or unexpected radiopaque foreign body. Surgical drain is in place. IMPRESSION: Expected findings following total right knee arthroplasty. ACT 112: Negative or not required by law. Electronically signed by: Joshua White M.D. 05/30/2023 12:41 PM
[2023-05-31 07:30] LABS: Hematocrit (blood only) 33.2 % (42.0-52.0); Hemoglobin 11.4 g/dl (14.0-18.0); Mean Corpuscular Hemoglobin 29.5 pg (25.0-34.0); Mean Corpuscular Hgb Conc 34.3 g/dL (32.0-36.0); Mean Corpuscular Volume 85.8 fL (80.0-100.0); Mean Platelet Volume 9.4 fL (9.4-12.4); Platelet Count 202 K/uL (130-400); RDW Coefficient of Variation 12.4 % (11.5-14.5); RDW Standard Deviation 38.4 fL (36.4-46.3); Red Blood Count 3.87 M/uL (4.70-6.10); White Blood Count 11.07 K/ul (4.8-10.8)
[2023-05-31 07:40] LABS: BUN Creatinine Ratio 29.1 (10-20); Calcium 8.6 mg/dl (8.6-10.3); Creatinine Clr Calc Pharmacy 75.5 ml/min; Est GFR (African American) 97.6 ml/min; Est GFR (Non-African American) 84.2 ml/min; Potassium 4.3 mmol/L (3.5-5.1)
[2023-05-31] MEDS ORDERED: PANTOprazole 40 MG TAB PO SCH (09:00)
[2023-05-31] MEDS ORDERED: MULTIVITAMIN TAB PO SCH (09:00)
[2023-05-31] MEDS ORDERED: ASCORBIC ACID 500 MG TAB PO SCH (09:00)
[2023-05-31] MEDS: ASPIRIN 81 MG ECTAB PO SCH (09:03)
[2023-05-31] MEDS: DOCUSATE SODIUM 100 MG CAP PO SCH (09:03)
--- NOTE | 2023-06-05 14:38 | Discharge Summary ---
Date of Service June 05, 2023 Admission HPI Per Admitting Provider Mr Isaacs is a 78 year old male who complains of right knee pain, presents for pre-op evaluation prior to a right total knee replacement. He complains of pain, decreased range of motion, instability and stiffness in his right knee. He states that the symptoms occur constantly with intermittent worsening. Currently the patient states that the symptoms are moderate-severe and the pain is described as aching, sharp and throbbing. His symptoms are aggravated by ascending stairs, daily activities, first steps while awake walking. Prior NSAIDs include IBU and Aleve. He has been treated with previous cortisone in jections in the past without much relief. Admission Exam Per Admitting Provider Physical Exam: HT: 5ft 10in WT: 77.11kg Constitutional: WD/WN, vitals as above no acute distress Respiratory: normal respiratory effort, lungs clear to auscultation no respiratory distress, no labored breathing and does not use accessory muscles Cardiovascular: RRR, no murmur, no edema Gastrointestinal (Abdomen): normal bowel sounds, soft, nontender, no hepatosplenomegaly Musculoskeletal: Knee: + knee abnormal to inspection (RIGHT KNEE), + effusion (+1 effusion), + surgical incision (well healed portals), + limited ROM of knee (ROM 0/3/110), + knee ROM with crepitation, + joint line tenderness (medial joint line) and + Manas's sign positive; no deformity, no skin erythema, no ecchymosis, no valgus laxity, no varus laxity, anterior drawer test negative, Yuriy's sign negative and pivot shift test negative Principal Diagnosis Right Knee DJD Discharge Data Allergies Allergy/AdvReac Type Severity Reaction Status Date / Time morphine AdvReac Intermediate "not Verified 05/30/23 08:21 effective" Pwkxenw-PDD-EhG Reductase AdvReac Intermediate LEG CRAMPS Verified 05/30/23 08:21 Inhibitor ciprofloxacin [From Cipro] AdvReac myalgia Verified 05/30/23 08:21 Procedures Performed Operation Date: 05/30/23 09:00 Actual Procedures p Right Total Knee Arthroplasty(Right) - Aftab Bonilla DO Ordered Studies 05/30/23 05:00 US - OR guided needle placemen Routine Hospital Course (1) History of total right knee replacement: Patient: PAL ISAACS Admit Date: 05/30/23 MR#: [id number] Att Phy: Aftab Bonilla D.O. Acct ID: [id number] Gaby Phy: Scott Almaguer M.D. Date: 1945 Fam Phy: Age: 78 Location: Sex: M Room/Bed: [facility] cc: ~ *NOTICE TO RECEIVING [employer]/AGENCY This information is strictly Confidential and protected under [place] law. [place] law prohibits you from making any further disclosure of this information unless further disclosure is expressly permitted by the written consent of the person to whom it pertains or is authorized by law. A general authorization for the release of medical or other information is not sufficient for this purpose. Hospital accepts no responsibility if the information is made available to any other person, INCLUDING THE PATIENT. Date of Service May 31, 2023 Assessment & Plan (1) History of total right knee replacement: Plan: POD #1 s/p Right TKA pt/ot dvt proph with YADI/SCD/ASA plan for d/c home with HHPT Admission and Anticipated Discharge Date Admission Date: May 30, 2023 Subjective POD #1 s/p Right TKA Review of Systems Constitutional: no fever, no chills and no sweats Respiratory: no cough and no dyspnea Cardiovascular: no chest pain and no dyspnea Gastrointestinal: no abdominal pain, no nausea and no vomiting Physical Exam Physical Exam: Vital Signs Temp 36.6 C 05/31/23 03:53 Pulse 55 L 05/31/23 03:53 Resp 18 05/31/23 03:53 BP 131/69 05/31/23 03:53 Pulse Ox 95 05/31/23 03:53 O2 Del Method Room Air 05/31/23 03:53 O2 Flow Rate 2 05/30/23 13:55 Intake & Output 05/30/23 05/31/23 05/31/23 18:59 06:59 18:59 Intake Total 1200 / 3465.000 2265.000 / 3465.00 0 Output Total 330 / 580 250 / 580 Balance 870 / 2885.000 2015.000 / 2885.00 0 Weight 77.9 kg 77.6 kg Intake: IV 200 / 5059.477 9435.000 / 1765.00 0 Lactated Ringe r's 1,000 ml @ 15 0 / 0 mls/hr IV .Q24 H LOKI Rx#: [id number] Sodium Chlorid e 0.9% 1,000 ml @ 1565.000 / 1565.00 0 100 mls/hr IV .Q10H LOIK Rx#: [id number] Tranexamic Aci d / 0.7% NaCl 1, 200 / 200 000 mg In 100 ml @ 600 mls/hr IV TODAY@0600 LOKI Rx#:[id number] IV Perioperative 1000 / 1000 Oral 700 / 700 Output: Estimated Blood Loss 5 / 5 Drain Output 325 / 575 250 / 575 Knee Hemovac 325 / 575 250 / 575 Other: # Unmeasured Voi ds 1 Weight Measureme nt Method Standing Scale Built in [facility] Musculoskeletal: Right Leg: NVDI, calf SNT, negative nieves sign. DP palpable, able to wiggle toes/ankle movement without difficulty. dressing clean dry and intact. Results & Data Vital Signs (Past 12 Hours) Vital Signs Temp Pulse Resp BP Pulse Ox O2 Del Method 05/31/23 03:53 36.6 C 55 L 18 131/69 95 Room Air 05/30/23 23:43 36.6 C 57 L 18 117/53 L 93 Room Air 05/30/23 19:41 36.5 C 65 18 122/73 95 Room Air Laboratory Results Impressions Knee X-Ray 05/30/23 11:57 XR knee RT 1 or 2V routine CLINICAL HISTORY: Postoperative evaluation. COMPARISON: None FINDINGS: Alignment of the total right knee arthroplasty is anatomic. There is no periprosthetic fracture or unexpected radiopaque foreign body. Surgical drain is in place. IMPRESSION: Expected findings following total right knee arthroplasty. ACT 112: Negative or not required by law. Electronically signed by: Joshua White M.D. 05/30/2023 12:41 PM Signed By: <Electronically signed by Juaquin Benz PA-C> 05/31/23718 <Electronically signed by Fritz Carter M.D.> 05/31/23729 Created: 05/31/23 07 Total Time Total Time Spent Total Time Spent (In Minutes): 5 Discharge Plan Discharge Items Patient Disposition: Home - Home Health Services Reason For Visit: Right Knee Osteoarthritis Discharge Diagnosis: Right knee osteoarthritis Activity: Per Instructions section Weightbearing: Full weightbearing Non-emergency contact: Surgeon Call non-emergency contact if: you have any medication questions, your pain is not controlled, your temperature is above 101.5, your wound has increased redness and your wound has increased drainage Follow-up/Referrals: Aftab Bonilla DO [Surgeon] - ( follow-up with Dr. Bonilla or his PA in 2 weeks from the day of your surgery for your first postoperative visit.) Scott Almaguer [Primary Care Provider] - Diet: Regular Addtl Attending Provider Instructions: ACTIVITY RECOMMENDATIONS: SELF CARE INSTRUCTIONS AFTER TOTAL KNEE REPLACEMENT A. You may need to continue a physical therapy program after discharge from the hospital. There are several options available to you. Your doctor will assist you in selecting the best one for you. 1. An out-patient facility 2 to 3 times a week for therapy or home therapy. 2. Continue working on all exercises taught to you in the hospital. Your goals should be to increase bending of your knee to 90 degrees and beyond and to fully straighten your knee. B. You may progress at your own pace from walking with a walker or crutches to a cane; then to no assistive devices. C. Make walking a part of your daily routine. Be up as much as comfortable with rest periods throughout the day. Rest with leg elevation is very important. Use the ice wrap frequently for the first 3-4 weeks. D. There are no restrictions on activities. You may ride in a car, shop, participate in supervisor hot dip tinning and all social activities. E. Wear the long elastic stockings (YADI hose) 20 hours a day for 2 weeks after surgery. They can be removed several times a day for laundering and for a bath. F. You may shower, no tub baths until cleared by your doctor. SPECIAL CARE INSTRUCTIONS: VERY IMPORTANT TO READ AND REVIEW A. There are a few signs you need to watch for after you are home. Call [facility] if you notice any of the followin. Increased severe knee pain. Some pain is expected especially when you exercise. 2. Increased swelling in your leg or knee; pain or swelling of the calf muscle in either lower leg. 3. Any fluid drainage from the incision. 4. Shortness of breath or chest pain. B. Please call [facility] at if you have any concerns or questions about your operation or recovery. The doctor or his nurse will return your call promptly. C. You must take antibiotics before dental work, bladder, bowel or other surgery. Your doctor will provide you with a permanent care to carry describing this precaution. IMPORTANT: * REMEMBER TO TAKE ASPIRIN, 81 MG, TWICE DAILY FOR 4 WEEKS UNLESS OTHERWISE DIRECTED. THIS IS YOUR BLOOD THINNER. * HIGH RISK PATIENTS MAY BE PRESCRIBED A STRONGER BLOOD THINNER. THIS WILL BE PROVIDED AT DISCHARGE. * CALL IF INCREASED PAIN, REDNESS, DRAINAGE OR FEVER GREATER THAT 101. * WEAR YADI HOSE 20 HOURS PER DAY FOR 2 WEEKS. * MALU Dressing - This is a large suction dressing covering your incision. T his will help pull any excess drainage from the wound and allow your incision to heal properly. You may shower with this if you can keep the unit outside of the shower. If any bleeding or leakage is noted please call your doctor's office. This will remain on your incision for 7 days and then should be removed. This can be done yourself or by the home nursing staff if applicable. The entire un it is disposable once removed. Once removed, keep incision clean and dry. If redness or drainage is noted, please call your surgeon. . After your malu dressing has been removed, follow wound care instructions below. * DERMABOND Prineo- This is a mesh tape dressing that is covered with glue. It should remain in place until the incision is properly healed, usually 10-14 days. This dressing is designed to naturally slough off. You may trim the excess mesh tape as it peels off. Incision may be briefly wet in a shower. Dry immediately by blotting with a clean, dry towel. Do not bath or swim until instructed by your doctor. Do not scratch, rub, or pick at the dressing. Do not apply any topical ointments or lotions until dressing is completely removed and/or instructed by your doctor. There may be a small piece of suture material at one end of your incision. Do not pull or trim this. If it is bothersome or catching on clothing, you may cover it with a band-aid. FOLLOW UP VISIT: If appointment is not already scheduled: Please call [facility] to make a follow-up appointment for 2 weeks after your surgery at . Stand-Alone Forms: My [facility], Pain - Opioid Pain Management Medications and DC Order Prescriptions: New acetaminophen [Tylenol Extra Strength] 500 mg Tablet 1,000 mg PO Q8 14 Days Qty: 84 0RF aspirin 81 mg Tablet,Delayed Release (Dr/Ec) 81 mg PO BID 30 Days Qty: 60 0RF polyethylene glycol 3350 [Miralax] 17 gram powder in packet 17 g PO DAILY PRN (Reason: constipation) Qty: 5 0RF cefadroxil 500 mg capsule 500 mg PO BID Qty: 28 1RF oxycodone 5 mg tablet 5 - 10 mg PO Q6H PRN (Reason: pain) Qty: 30 0RF Rx Instructions: ongoing therapy, supervising dr tamar bonilla. max 6 tabs in 24 hours Continued tadalafil 5 mg tablet 20 mg PO ONCE PRN (Reason: sexual activity) Qty: 30 11RF chlorpheniramine maleate [Allergy (chlorpheniramine)] 4 mg Tablet 4 mg PO Q5H PRN (Reason: Allergy Symptoms) rosuvastatin 10 mg Tablet 10 mg PO QPM omeprazole 20 mg Tablet,Delayed Release (Dr/Ec) 20 mg PO PM ascorbic acid (vitamin C) [Vitamin C] 500 mg Tablet 500 mg PO QAM vitamin E 268 mg (400 unit) Capsule 400 mg PO QAM Held omega-3 fatty acids 1,000 mg Capsule 1,000 mg PO QAM Hold Instructions: Resume in 2 weeks from the day of your surgery aspirin 81 mg Tablet,Delayed Release (Dr/Ec) 81 mg PO QAM Hold Instructions: Resume on 06/27/23. Resume one tablet daily in 4 weeks after you have stopped taking the aspirin twice daily Krames/Other Patient Handouts: Knee Replacement Total Dc Admission Data Admit Date/Time: 05/30/23 11:57 Attending Provider: Aftab Bonilla Admit Provider: Aftab Bonilla Primary Care Provider: Scott Almaguer Other Interventions: Discharge Summary Assessment (RN) Last Done: 05/31/23 09:15
== END 2023-05-31 10:19 | disposition home health service (06) ==
LOC: PACUINP 07:19 → ASU 07:19 → 3E 14:31

== ENCOUNTER 2024-01-24 09:47 | Observation (INO) ==
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
[2024-01-24] MEDS ORDERED: ONDANSETRON INJ 2 MG/ML 2 ML VIAL IV PRN (10:16)
[2024-01-24] MEDS ORDERED: HYDROmorphone INJ 2 MG/ML SYR/VIAL IV PRN (10:16)
[2024-01-24] MEDS ORDERED: ePHEDrine sulfate 50 MG/ML AMP IV PRN (10:16)
[2024-01-24] MEDS ORDERED: ATROPINE SULFATE 0.1 MG/ML 10ML SYR IV PRN (10:16)
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
[2024-01-24] MEDS: LR 15ML/HR IV SCH (10:39)
[2024-01-24] MEDS ORDERED: MIDAZOLAM HCL 1 MG/ML 2ML VIAL ONE (10:54)
[2024-01-24] MEDS ORDERED: fentaNYL citrate PF 100 MCG/2 ML VIAL ONE (10:54)
[2024-01-24] MEDS ORDERED: oxyBUTYnin chloride 5 MG TAB PO PRN (11:55)
[2024-01-24] MEDS ORDERED: MoRPHine SULFATE 2 MG/ML CARP IV PRN (11:55)
[2024-01-24] MEDS ORDERED: oxyCODONE/ACETAMINOPHEN 5mg/325mg TAB PO PRN (11:55)
[2024-01-24] MEDS: ceFAZolin 2000MG 2,000 MG/15 ML SYR IV SCH ×2 (12:14→17:04)
[2024-01-24] MEDS ORDERED: LIDOCAINE 2% 2 ML VIAL/AMP(20MG/ML) INFIL ONE (12:39)
[2024-01-24] MEDS ORDERED: PROPOFOL IV EMULSION 10 MG/ML 20 ML VIAL IV ONE (12:39)
[2024-01-24] MEDS ORDERED: DEXAMETHASONE SOD INJ 4 MG/ML VIAL ONE (12:40)
[2024-01-24] MEDS ORDERED: DexMEDEtomidine HCL IV 100 MCG/ML VIAL IV ONE (12:40)
--- NOTE | 2024-01-24 14:05 | Operative Report ---
PG Post Operative Report Pre & Post Diagnosis Operation Date: 01/24/24 11:30 Pre-Op Diagnosis: (1) Prostate CA (2) Bladder outlet obstruction (3) Acute bilateral obstructive uropathy Post-Op Diagnosis: (1) Prostate CA (2) Bladder outlet obstruction (3) Acute bilateral obstructive uropathy I identified the patient and participated in the time-out.: Yes Procedure Operation Date: 01/24/24 11:30 <No data on this case meets the specified criteria> Transurethral Resection of Prostate Transrectal ultrasound with prostate needle biopsy Surgeon Isiah Leon, II, DO Advanced Quality Engineer None Estimated Blood Loss 10 Findings Consistent with Post-Op Diagnosis Prostate measured 65.47 cc Specimens Total of 16 x biopsies: Left and right base, mid, lateral, and apex x2 Resection of Prostate Drains [address] Anesthesia Type MAC Complications none Disposition Disposition: Recovery Room Indications Patient with prostate cancer on active surveillance with elevated PSA. Significant prostate enlargement with irregular regrowth of previous resection. Risks and benefits discussed at length. Description of Procedure Patient was consented and brought back to the operating room. Patient was placed under anesthesia in the supine position and moved to the dorsal lithotomy position. Patient was prepped and draped in the regular sterile fashion. A time out was completed. A 30degree Cystoscope was placed into the bladder and the entire bladder was examined. The UO's were identified as well as the bladder neck, trigone, dome, and the other important landmarks. The prostatic urethra and large lobes/adenoma was assessed and the veru and bladder neck identified and area/size was assessed. Significant irregular regrowth was noted throughout the prostatic urethra. Multiple related areas were noted. Large varicosities were noted throughout the bladder neck and prostatic urethra. Polypoid/inflammatory lesions were also noted. The resection scope was placed and the fine bipolar loop was selected. Starting at the 5 and 7 o'clock positions, a channel was created from bladder neck to the veru. The lateral lobes were then resected starting at the 1 and the 11 o'clock position and dissecting down to the capsule fibers. This was then resected from the bladder neck to the Veru. A significant amount of prostatic tissue was resected. The irregular regrowth made some areas of resection somewhat difficult. An extensive time was needed for complete resection of the multiple lobulated regrowth areas. The Specimen was removed and sent for analysis. The resection bed and any bleeding areas were fulgurated/cauterized and the entire area inspected. All bleeding was controlled. The bladder was inspected a final time. The bladder was emptied and irrigated. All specimen and debris was removed. The scope was removed with the bladder partially full. A catheter was placed and balloon elevated. This was easily irrigated. The catheter was then attached to the continuous bladder irrigation. Attention was then taken to the transrectal ultrasound and biopsy portion. Preparation: The patient was prepped and draped in the usual sterile fashion, a 6mHz GE transrectal probe, lubricated with Surgilube, was gently placed within the rectal vault and positioned adjacent to the prostate Transrectal Sonography Transrectal Prostate Biopsy with Ultrasound: Core biopsies take from the right side of the prostate: 8 Core biopsies taken from the left side of the prostate: 8 Locations: Left, Right, Base, Mid and [place] Total number of biopsies: 16 Hypoechoic Lesion(s) Hypoechoic Lesion(s): None Calcification(s) Calcification(s): None Prostate Capsule Prostate Capsule: Intact Contour: smooth Seminal Vesicles Seminal Vesicles: Normal Estimated Prostate Weight (grams): 65.47 PSA Value: PSA (NG/ML) 10.711 NISHANT: Enlarged and nodular Patient Status: Tolerated Well and Vital Signs Stable Complications: No Complications Patient Instructions The patient was cleaned, aroused from anesthesia, and transferred to the pacu in stable condition having tolerated the procedure well with no complications. I was present and participated in all aspects of the procedure. The patient will be monitored in the PACU until transferred. The patient was kept on continuous bladder irrigation. Will observe overnight I attest to the content of the Intraoperative Record and any orders documented therein. Any exceptions are noted below.
[2024-01-24 15:07] VITALS: RESP 18
[2024-01-24] MEDS ORDERED: CETIRIZINE HCL 10 MG TABLET PO PRN (15:36)
--- NOTE | 2024-01-24 15:44 | Anesthesiology Progress Note ---
Date of Service January 24, 2024 Anesthesia Post Procedure Vital Signs Vital Signs: Temp Pulse Pulse Resp BP Pulse Ox O2 Del Method 01/24/24 15:40 36.3 C L 54 L 18 137/80 94 Room Air 01/24/24 15:06 36.6 C 51 L 18 125/72 94 Room Air 01/24/24 14:50 50 L 20 127/62 92 Room Air 01/24/24 14:40 36.4 C L 50 L 19 123/58 L 92 Room Air 01/24/24 14:30 48 L 17 119/75 96 Room Air 01/24/24 14:20 50 L 17 117/67 97 Oxymask 01/24/24 14:10 50 L 17 120/66 92 Room Air 01/24/24 14:01 36.0 C L 55 L 22 118/67 95 Room Air 01/24/24 10:16 36.5 C 66 20 141/75 H 95 Room Air O2 Flow Rate 01/24/24 15:40 01/24/24 15:06 01/24/24 14:50 0 01/24/24 14:40 0 01/24/24 14:30 0 01/24/24 14:20 2 01/24/24 14:10 01/24/24 14:01 01/24/24 10:16 Pain Intensity Penis: Pain Intensity: 4 Transfer of Care Handoff Completed per policy Notes Mental Status: alert / awake / arousable and participated in evaluation Nausea / Vomiting: adequately controlled Pain: adequately controlled Airway Patency, RR, SpO2: stable & adequate BP & HR: stable & adequate Hydration State: stable & adequate Anesthetic Complications: no major complications apparent and Pt Satisfied with anesthetic care
[2024-01-24 15:56] LABS: Hematocrit (blood only) 39.5 % (42.0-52.0); Hemoglobin 13.3 g/dl (14.0-18.0); Mean Corpuscular Hemoglobin 28.7 pg (25.0-34.0); Mean Corpuscular Hgb Conc 33.7 g/dL (32.0-36.0); Mean Corpuscular Volume 85.1 fL (80.0-100.0); Mean Platelet Volume 8.9 fL (9.4-12.4); Platelet Count 159 K/uL (130-400); RDW Coefficient of Variation 12.4 % (11.5-14.5); Red Blood Count 4.64 M/uL (4.70-6.10); White Blood Count 7.09 K/ul (4.8-10.8)
[2024-01-24] MEDS: SODIUM CHLORIDE 0.9% 1,000 ML IV SCH (16:18)
[2024-01-24 16:20] LABS: Albumin Globulin Ratio 1.9 (0.9-2); Albumin Level 4.2 gm/dl (3.4-5.0); BUN Creatinine Ratio 29.4 (10-20); Bilirubin,Total 0.6 mg/dl (0.2-1.0); Calcium 8.7 mg/dl (8.6-10.3); Creatinine Clr Calc Pharmacy 95.4 ml/min; Est GFR (African American) 107.5 ml/min; Est GFR (Non-African American) 92.8 ml/min; Globulin 2.2 gm/dl (2.5-4.0); Potassium 4.2 mmol/L (3.5-5.1); Total Protein 6.4 gm/dl (6.0-8.3)
[2024-01-24 16:26] LABS: Basophils # (auto) 0.01 K/uL (0.00-0.20); Basophils % (auto) 0.1 %; Eosinophils # (auto) 0.01 K/uL (0.00-0.50); Eosinophils % (auto) 0.1 %; Immature Granulocytes # (auto) 0.02 K/uL (0.01-0.20); Immature Granulocytes % (auto) 0.3 %; Lymphocytes % (auto) 7.1 %; Monocytes % (auto) 1.4 %; Neutrophils # (auto) 6.45 K/uL (1.40-6.50)
[2024-01-24] MEDS: PANTOprazole 40 MG TAB PO SCH (20:27)
[2024-01-24] MEDS: ROSUVASTATIN CALCIUM 10 MG TAB PO SCH (20:27)
[2024-01-24] MEDS: PHENAZOPYRIDINE HCL 200 MG TAB PO PRN (20:28)
[2024-01-24] MEDS: TROLAMINE SALICYLATE 10% CRM 255 APPLN/85 GM TUBE EXT PRN (21:28)
[2024-01-24] MEDS: ACETAMINOPHEN 325 MG TAB PO PRN (21:29)
[2024-01-25 07:48] VITALS: BP 128/70; PULSE 57; TEMP 98.2; O2SAT 95
[2024-01-25] MEDS: CeleBREX 200 MG CAP PO SCH (09:13)
--- NOTE | 2024-01-25 09:34 | Urology Progress Note ---
Date of Service January 25, 2024 Assessment & Plan (1) Bladder outlet obstruction: (2) Prostate CA: Plan: - Pt POD#1 s/p TURP and prostate biopsy with Dr. Leon - Doing well, progressing as expected - Afebrile, hemodynamically stable - Tolerating PO diet - 3 way Orellana catheter intact, patent and draining yellow urine with CBI on slow - CBI clamped - will reassess later this AM - Maintain Orellana catheter - Anticipate home with Orellana catheter later today presuming urine appropriate and he continues to progress as expected - Expected clinical course reviewed, all questions answered - Will arrange outpatient follow-up with our service for voiding trial Admission and Anticipated Discharge Date Admission Date: January 24, 2024 Subjective Patient seen and examined at bedside this morning. No acute issues overnight. Reports he slept relatively well. Denies pain. Orellana patent and draining yellow urine with CBI on slow. CBI clamped at bedside. Denies fever or chills overnight. Review of Systems Constitutional: as per Subjective / HPI Genitourinary: + as per Subjective / HPI Physical Exam Constitutional: well developed and well nourished; no acute distress Respiratory: normal respiratory effort; no respiratory distress and no labored breathing Gastrointestinal (Abdomen): Inspection/Auscultation: abdomen normal to inspection Musculoskeletal: Head/Neck/Chest: normocephalic Neurologic: moves all extremities and awake Psychiatric: Orientation: alert and oriented x 3 Genitourinary: Orellana patent and draining yellow urine with CBI on slow, CBI clamped at bedside Results & Data Vital Signs (Past 12 Hours) Vital Signs Temp Pulse Resp BP Pulse Ox O2 Del Method 01/25/24 07:46 36.8 C 57 L 18 128/70 95 Room Air 01/25/24 04:00 36.5 C 56 L 18 144/79 H 92 Room Air 01/25/24 00:00 36.8 C 70 18 136/69 93 Room Air PG Care Time/CCT Total # of Minutes Spent Total Time Spent with Patient: Total time spent is greater than 50% in coordination of care (as documented) at patient's floor/unit and/or counseling patient: Coding Level of Care Code None Diagnoses Bladder outlet obstruction N32.0 Prostate CA C61
--- NOTE | 2024-01-25 11:42 | Discharge Summary ---
Date of Service January 25, 2024 Admission HPI Per Admitting Provider Patient here for procedure. No changes in medical issues. No major changes in urinary issues. Continued issues and concerns. No change in pain or discomfort. No severe fevers or chills. No chest pain or shortness of breath. Risks and benefits discussed at length for procedure. These include bleeding, infection, injury to surrounding tissues or organs, and risks associated with anesthesia. Patient and/or family states understanding and agrees to proceed. Consent and supporting information completed. Admission Exam Per Admitting Provider General: Alert in no acute distress. HEENT: Inspection normal Psychologic: Normal affect. Respiratory: Nonlabored. No use of accessory muscles. Skin: [place] and Dry. No rashes or visible lesions. Principal Diagnosis BPH, prostate cancer Discharge Exam Constitutional well developed and well nourished; no acute distress Respiratory normal respiratory effort; no respiratory distress and no labored breathing Gastrointestinal (Abdomen) Inspection/Auscultation: abdomen normal to inspection Musculoskeletal Head/Neck/Chest: normocephalic Neurologic moves all extremities and awake Psychiatric Orientation: alert and oriented x 3 Discharge Data Allergies Allergy/AdvReac Type Severity Reaction Status Date / Time morphine AdvReac Intermediate "not Verified 01/24/24 10:09 effective" Ozlcpsc-XHY-HsN Reductase AdvReac Intermediate LEG CRAMPS Verified 01/24/24 10:09 Inhibitor ciprofloxacin [From Cipro] AdvReac Unknown myalgia Verified 01/24/24 10:09 Procedures Performed Operation Date: 01/24/24 11:30 Actual Procedures p Transurethral Resection of the Prostate, Transrectal Ultrasound with Prostate Biopsy(Not Applicable) - Isiah Leon, DO Hospital Course (1) Bladder outlet obstruction: (2) Prostate CA: - Pt POD#1 s/p TURP and prostate biopsy with Dr. Leon - Doing well, progressing as expected - Afebrile, hemodynamically stable - Tolerating PO diet - 3 way [place] catheter intact, patent and draining yellow urine with CBI on slow - CBI clamped - will reassess later this AM - Maintain Orellana catheter - Anticipate home with Orell[place] catheter later today presuming urine appropriate and he continues to progress as expected - Expected clinical course reviewed, all questions answered - Will arrange outpatient follow-up with our service for voiding trial Total Time Total Time Spent Total Time Spent (In Minutes): 29 Discharge Plan Discharge Items Patient Disposition: Home - Self-Care Reason For Visit: PROSTATE CANCER, BPH Discharge Diagnosis: Prostate cancer, BPH Activity: Per Instructions section Lifting: No more than 25 pounds Bathing Comment: Okay to shower after discharge, no tub bath or soaking Sexual Activity: Wait until after follow-up appointment Exercise/Sports: Wait until after follow-up appointment Driving/Machine Use: No driving while taking prescription pain medication Non-emergency contact: Surgeon and Urologist Call non-emergency contact if: your pain is not controlled and your temperature is above 101 Follow-up/Referrals: Scott Almaguer [Primary Care Provider] - Diet: Regular Addtl Attending Provider Instructions: Please take all medications as prescribed and keep all follow-ups as scheduled. Please call our office at [phone] with any questions, concerns or need to reschedule appointments for any reason. We are happy to assist you. You can resume your aspirin tomorrow if your urine remains clear to light pink. Tips for your recovery at home: Dont be alarmed by brownish or reddish blood or clots in your urine. This is a result of the procedure. This may occur off and on for weeks to months after the procedure but should continue to improve. Drink plenty of fluids during the day (enough to keep your urine very light colored). This will help keep a healthy flow of urine. Do not lift >25 lbs until your followup Avoid constipation. Please use a stool softener (Colace) for the first two weeks after your procedure Be sure to finish the antibiotics as prescribed. If you go home with a catheter, please wash tubing where it enters your body twice daily with mild soap (Dove or Dial). Once your catheter is removed, expect some blood in your urine and some burning when you urinate. You should have an appointment to have this removed, if you do not please call our office to arrange. Pending Studies at Discharge: Yes (pathology) Stand-Alone Forms: [employer] [facility] [employer], Smoking Cessation Medications and DC Order Prescriptions: New sulfamethoxazole-trimethoprim [Bactrim DS] 800-160 mg tablet 1 tab PO DAILY 7 Days Qty: 7 0RF Continued lorazepam 1 mg tablet 1 mg PO DAILY PRN (Reason: Pre procedure ) Qty: 1 0RF tadalafil 5 mg tablet 20 mg PO ONCE PRN (Reason: sexual activity) Qty: 30 11RF rosuvastatin 10 mg Tablet 10 mg PO QPM omeprazole 20 mg Tablet,Delayed Release (Dr/Ec) 20 mg PO PM omega-3 fatty acids 1,000 mg Capsule 1,000 mg PO BID Hold Instructions: Resume in 2 weeks from the day of your surgery ascorbic acid (vitamin C) [Vitamin C] 500 mg Tablet 500 mg PO QAM vitamin E 268 mg (400 unit) Capsule 400 mg PO QAM aspirin 81 mg Tablet,Delayed Release (Dr/Ec) 81 mg PO QAM Hold Instructions: Resume on 06/27/23. Resume one tablet daily in 4 weeks after you have stopped taking the aspirin twice daily celecoxib 200 mg capsule 200 mg PO QAM levocetirizine [Xyzal] 5 mg Tablet 5 mg PO PM PRN (Reason: Allergy Symptoms) Discharge Orders: Discharge Order (Routine); Ordered 01/25/24 Ordered By: Zelda Armando/Other Patient Handouts: TURP Admission Data Admit Date/Time: 01/24/24 11:55 Attending Provider: Isiah Leon Admit Provider: Isiah Leon Primary Care Provider: Scott Almaguer Other Interventions: Discharge Summary Assessment (RN) Last Done: 01/25/24 12:17 Coding Level of Care Code 59014 IN/OBS DISCH 30 MIN/LESS Diagnoses Bladder outlet obstruction N32.0 Prostate CA C61
== END 2024-01-25 12:40 | disposition home or self-care (01) ==
LOC: ASU 09:47 → 3E 09:47